=== PATIENT | female | born 2000 | race Caucasian/White ===

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

== ENCOUNTER 2019-08-24 21:09 | Emergency (ER) | payer MEDICAID ==
[~2019-08-24] VITALS: Ht 165.1 cm; Wt 56.7 kg
[~2019-08-24 21:09] MED LIST changes: +CEPHALEXIN 500 MG CAPSULE; -CLIN300C11 PO; +SULFAMETHOXAZOLE-TMP DS TABLET
[2019-08-24 21:27] LABS: *URINE HCG, QUAL POSITIVE (NEGATIVE)
[2019-08-24 21:28] LABS: *BILIRUBIN,URIN NEGATIVE (NEGATIVE); *BLOOD, URINE NEGATIVE (NEGATIVE); *CLARITY,URINE CLEAR (CLEAR); *COLOR,URINE YELLOW (YELLOW); *KETONES,URINE NEGATIVE (NEGATIVE); LEUKOCYTE ESTERASE ,URINE TRACE (NEGATIVE); NITRITE, URINE NEGATIVE (NEGATIVE); UGLUCOSE NEGATIVE (NEGATIVE)
[2019-08-24 21:35] LABS: BACTERIA,URINE FEW /HPF (NONE SEEN); MUCUS,URINE FEW /LPF (0-FEW); SQUAMOUS EPITHELIAL CELL,UR FEW /HPF (NONE SEEN); WBC,URINE 20-50 /HPF (0-3)
[2019-08-24] MEDS ORDERED: NITROFURANTOIN/NITROFURAN MAC 100 MG CAPSULE ONE (21:38)
[2019-08-24] MEDS: NITROFURANTOIN/NITROFURAN MAC 100 MG CAPSULE PO ONE (21:39)
--- NOTE | 2019-08-24 21:40 | NUR ---
Patient discharged to home in stable conditon. Written and verbal after care instructions given. Patient verbalizes understanding of instructions. aMBULATED FROM er WITH STABLE GAIT. aLL BELONGINGS W/ PATIENT.
[2019-08-24 21:41] VITALS: BP 121/77
== END 2019-08-24 21:45 | disposition home or self-care (01) ==
LOC: ER 21:10
DX: O86.20 Urinary tract infection following delivery, unspecified (principal); F17.200 Nicotine dependence, unspecified, uncomplicated; F11.10 Opioid abuse, uncomplicated; Z88.2 Allergy status to sulfonamides; Z88.1 Allergy status to other antibiotic agents; Z79.899 Other long term (current) drug therapy
CPT/HCPCS: 84703; 87086; A4663

== ENCOUNTER 2024-03-15 15:59 | Emergency (ER) | payer OTHER | END 2024-03-15 18:53 | disposition left against medical advice (07) | LOC: ER 16:00 | DX: R52 Pain, unspecified (principal); Z53.21 Procedure and treatment not carried out due to patient leaving prior to being seen by health care provider ==